=== PATIENT | female | born 1980 | race Caucasian/White ===

== ENCOUNTER 2020-06-29 08:24 | Emergency (ER) | payer OTHER ==
[~2020-06-29] VITALS: Ht 165.1 cm; Wt 55.3 kg
[2020-06-29 08:39] VITALS: BP 104/55; Ht 165.1 cm; Wt 55.3 kg
[2020-06-29] MEDS ORDERED: NAPROSYN500 MG PO (09:46)
== END 2020-06-29 10:08 | disposition home or self-care (01) ==
LOC: ED 08:24
DX: S93.402A Sprain of unspecified ligament of left ankle, initial encounter (principal); S83.92XA Sprain of unspecified site of left knee, initial encounter; V00.121A Fall from non-in-line roller-skates, initial encounter; Y93.51 Activity, roller skating (inline) and skateboarding; Y92.89 Other specified places as the place of occurrence of the external cause; Y99.8 Other external cause status